=== PATIENT | female | born 1950 | race African-American/Black ===

== ENCOUNTER 2017-08-19 20:14 | Inpatient (IN) | payer OTHER ==
[~2017-08-19] VITALS: Ht 160 cm; Wt 94.4 kg
[2017-08-19 21:36] LABS: Basophils # (auto) 0.1 uL; Basophils % (auto) 0.7 % (0.0-2.0); Eosinophils # (auto) 0.4 uL; Eosinophils % (auto) 4.3 % (0.0-7.0); Hematocrit 41.6 % (36.0-46.0); Hemoglobin 13.7 g/dL (12.2-16.2); Lymphocytes # (auto) 1.4 uL; Lymphocytes % (auto) 16.1 % (10.0-50.0); Mean Corpuscular Hemoglobin 27.2 pg (28.0-32.0); Mean Corpuscular Hgb Conc. 32.9 g/dL (32.0-36.0); Mean Corpuscular Volume 82.8 fL (80.0-100.0); Mean Platelet Volume 7.6 fL (6.9-10.8); Monocytes # (auto) 0.7 uL; Monocytes % (auto) 7.7 % (0.0-12.0); Neutrophils % (auto) 71.2 % (37.0-80.0); Nucleated Red Blood Cells % 0.1 %; Platelet Count (auto) 322 10^3/uL (140-450); Red Cell Distribution Width 14.6 % (11.8-14.3); White Blood Cell 8.5 10^3/uL (4.4-10.8)
[2017-08-19 21:41] LABS: B-Type Natriuretic Peptide 151.25 pg/mL (0-100)
[2017-08-19 21:56] LABS: Temperature: 23.5 C (20.0-25.0)
[2017-08-20 00:04] LABS: INR 0.94 (0.9-1.15); Partial Thromboplastin Time 24.2 sec (22.64-33.71); Prothrombin Time 10.2 sec (9.37-12.3)
[2017-08-20 00:11] LABS: Albumin 3.6 g/dL (3.4-5.0); BUN/Creatinine Ratio 9.4; Bilirubin, Total 0.3 mg/dL (0.2-1.0); Calcium 8.9 mg/dL (8.5-10.1); Magnesium 2.1 mg/dL (1.6-2.6); Potassium 3.7 mmol/L (3.5-5.1); Total Protein 7.5 g/dL (6.4-8.2)
[2017-08-20] MEDS ORDERED: IOHEXOL 350 MG/ML 100ML IJ ONE (03:14)
[2017-08-20] MEDS ORDERED: HYDROcodone-ACET 5/325MG TAB PO PRN (03:15)
[2017-08-20] MEDS ORDERED: MORPHINE SULF INJ 2 MG/ML SYRINGE 1ML IV PRN (03:15)
[2017-08-20] MEDS ORDERED: ACETAMINOPHEN 325 MG TAB PO PRN (03:15)
[2017-08-20] MEDS ORDERED: TEMAZEPAM 15 MG CAP PO PRN (03:15)
[2017-08-20] MEDS ORDERED: NITROGLYCERIN 0.4 MG SL TAB SL PRN (03:15)
[2017-08-20] MEDS ORDERED: ONDANSETRON HCL 4 MG/2 ML VIAL IV PRN (03:15)
[2017-08-20] MEDS ORDERED: ALBUTEROL SULF 2.5 MG/0.5ML(0.5%) NEB SOLN NEB PRN (03:15)
[2017-08-20] MEDS ORDERED: DEXTROSE (50%) 50ML SYRG IV PRN (03:15)
[2017-08-20] MEDS ORDERED: ENOXAPARIN SOD 40 MG/0.4 ML SYRINGE SC ONE (03:15)
[2017-08-20] MEDS ORDERED: cloNIDine HCL 0.1 MG TAB PO ONE (04:45)
[2017-08-20 05:18] VITALS: BP 187/90
[2017-08-20] MEDS: cloNIDine HCL 0.1 MG TAB PO SCH ×2 (05:51→15:25)
[2017-08-20] MEDS: ACCU-CHEK COMFORT CURVE STRIP VI SCH ×2 (05:51→12:09)
[2017-08-20 06:00] VITALS: BP 187/90
[2017-08-20] MEDS: InsuLIN REG 1unit/0.01ml Soln (100units/ml) SC SCH ×2 (06:00→12:09)
[2017-08-20 07:38] VITALS: BP 154/65
[2017-08-20] MEDS ORDERED: amLODIPine BESYLATE 5 MG TAB PO SCH (10:00)
[2017-08-20] MEDS ORDERED: FUROSEMIDE 20 MG TAB PO SCH (10:00)
[2017-08-20] MEDS ORDERED: METOPROLOL TARTRATE 50 MG TAB PO SCH (10:00)
[2017-08-20] MEDS ORDERED: FAMOTIDINE 20 MG TAB PO SCH (10:00)
[2017-08-20 10:09] LABS: Urine RBC None Seen /hpf (0 - 4)
[2017-08-20 10:29] LABS: Urine Bilirubin Negative (Negative); Urine Blood Negative /uL (Negative); Urine Color Yellow (Yellow); Urine Glucose Normal (Normal); Urine Ketone Negative (Negative); Urine Nitrite Negative (Negative); Urine Squamous Epithelial Cell FEW /hpf (<5); Urine Urobilinogen Normal (Negative); Urine pH 6.5 (5.0-8.0)
[2017-08-20 12:05] VITALS: BP 158/105
[2017-08-20 14:48] VITALS: BP 148/68
[2017-08-20 15:06] VITALS: BP 148/68
[2017-08-20] MEDS ORDERED: ATORVASTATIN 20 MG TAB PO SCH (22:00)
[2017-08-21] MEDS ORDERED: ENOXAPARIN SOD 40 MG/0.4 ML SYRINGE SC SCH (10:00)
== END 2017-08-20 15:47 | disposition home or self-care (01) | DRG 189 ==
LOC: ER 20:14 → EDBD 20:14 → TELE 20:15 → TELE-EAST 08-20 04:36
PROVIDERS: ADMIT Internal Medicine; ATTEND Internal Medicine Geriatric Medicine
DX: J96.20 Acute and chronic respiratory failure, unspecified whether with hypoxia or hypercapnia (principal); I48.91 Unspecified atrial fibrillation; I50.9 Heart failure, unspecified; I11.0 Hypertensive heart disease with heart failure; E11.9 Type 2 diabetes mellitus without complications; I25.10 Atherosclerotic heart disease of native coronary artery without angina pectoris; J44.9 Chronic obstructive pulmonary disease, unspecified; R79.1 Abnormal coagulation profile; Z90.12 Acquired absence of left breast and nipple; Z82.5 Family history of asthma and other chronic lower respiratory diseases; Z83.3 Family history of diabetes mellitus; Z82.49 Family history of ischemic heart disease and other diseases of the circulatory system; Z82.0 Family history of epilepsy and other diseases of the nervous system; Z88.8 Allergy status to other drugs, medicaments and biological substances
CPT/HCPCS: 36415; 70450; 71010; 71275; 80053; 81001; 82962; 83735; 83880; 84443; 84484; 85025; 85379; 85610; 85730; 93005; 93306; 93970; 94761; 96372; J1815

== ENCOUNTER 2018-07-22 11:58 | Emergency (ER) | payer OTHER ==
[~2018-07-22] VITALS: Ht 157.5 cm; Wt 98.9 kg
[2018-07-22] MEDS ORDERED: cloNIDine HCL 0.1 MG TAB PO ONE (15:30)
[2018-07-22 16:15] VITALS: BP 174/86
== END 2018-07-22 16:20 | disposition home or self-care (01) ==
LOC: EDBD 11:58 → ER 11:58
DX: M19.012 Primary osteoarthritis, left shoulder (principal); M25.512 Pain in left shoulder; I11.0 Hypertensive heart disease with heart failure; I50.9 Heart failure, unspecified; J45.909 Unspecified asthma, uncomplicated; E11.9 Type 2 diabetes mellitus without complications; Z88.8 Allergy status to other drugs, medicaments and biological substances
CPT/HCPCS: 73030; 93005

== ENCOUNTER 2019-02-24 06:29 | Inpatient (IN) | payer OTHER ==
[~2019-02-24] VITALS: Ht 157.5 cm; Wt 98.1 kg
[2019-02-24] MEDS ORDERED: METOPROLOL TARTRATE 1MG/1ML-5ML VIAL IV ONE ×2 (07:18→07:30)
[2019-02-24] MEDS ORDERED: DILTIAZEM HCL 25 MG/5 ML VIAL IV ONE ×2 (07:20→07:30)
[2019-02-24 07:45] LABS: Basophils # (auto) 0 uL; Basophils % (auto) 0.7 % (0.0-2.0); Eosinophils # (auto) 0.4 uL; Eosinophils % (auto) 5.5 % (0.0-7.0); Hemoglobin 16.3 g/dL (12.2-16.2); Lymphocytes # (auto) 1.1 uL; Mean Corpuscular Hemoglobin 27.4 pg (28.0-32.0); Mean Corpuscular Hgb Conc. 32.6 g/dL (32.0-36.0); Monocytes # (auto) 0.6 uL; Monocytes % (auto) 9.9 % (0.0-12.0); Neutrophils # (auto) 4.3 uL; Neutrophils % (auto) 66.9 % (37.0-80.0); Nucleated Red Blood Cells % 0.1 %; Platelet Count (auto) 278 10^3/uL (140-450); Red Blood Cells 5.95 10^6/uL (4.0-5.20); Red Cell Distribution Width 15.2 % (11.8-14.3); White Blood Cell 6.5 10^3/uL (4.4-10.8)
[2019-02-24 07:56] LABS: Potassium 3.3 mmol/L (3.5-5.1)
[2019-02-24 07:59] LABS: Albumin 3.6 g/dL (3.4-5.0); Calcium 9.3 mg/dL (8.5-10.1)
[2019-02-24 08:02] LABS: BUN/Creatinine Ratio 10.6
[2019-02-24 08:05] LABS: Bilirubin, Total 0.8 mg/dL (0.2-1.0); Total Protein 7.3 g/dL (6.4-8.2)
[2019-02-24] MEDS ORDERED: POTASSIUM CHL 10% (20 MEQ/15ML) 15ml ORAL SOLN PO ONE (10:15)
[2019-02-24] MEDS ORDERED: NITROGLYCERIN 0.4 MG SL TAB SL PRN (10:30)
[2019-02-24] MEDS ORDERED: TEMAZEPAM 15 MG CAP PO PRN (10:30)
[2019-02-24] MEDS ORDERED: DEXTROSE (50%) 50ML SYRG IV PRN (10:30)
[2019-02-24] MEDS ORDERED: ACETAMINOPHEN 500 MG TAB PO PRN (10:30)
[2019-02-24] MEDS ORDERED: MORPHINE SULF INJ 2 MG/ML SYRINGE 1ML IV PRN (10:30)
[2019-02-24] MEDS ORDERED: PROMETHAZINE HCL 25 MG/ML 1ML IV PRN (10:30)
[2019-02-24] MEDS: SODIUM CHLORIDE 0.9% 1,000 ML IV SCH ×2 (10:36→23:36)
[2019-02-24] MEDS ORDERED: ENOXAPARIN SOD 100 MG/1 ML SYRINGE SC ONE (10:45)
[2019-02-24] MEDS ORDERED: ASPirin 81 mg TAB PO ONE (10:45)
[2019-02-24] MEDS ORDERED: METOPROLOL TARTRATE 50 MG TAB PO ONE (10:45)
[2019-02-24] MEDS: InsuLIN REG 1unit/0.01ml Soln (100units/ml) SC SCH ×3 (11:30→21:37)
[2019-02-24] MEDS: ACCU-CHEK COMFORT CURVE STRIP VI SCH ×3 (11:30→21:36)
--- NOTE | 2019-02-24 20:30 | NUR ---
Telemetry admit from ER EMILY TRAVIS admitted to Telemetry unit after SBAR received. Patient oriented to MICHAEL ALMARAZ RN primary RN, unit, room, bed, and unit policies regarding patient care and visiting hours. Patient now on continuous telemetry monitoring, tele box # [id number] and telemetry reading on arrival to unit is SR. Patient placed on bedside oxygen, weighed by bedscale and encouraged to call if they need something. All questions and concerns addressed, patient verbalized understanding. Note:
[2019-02-24] MEDS: ATORVASTATIN 20 MG TAB PO SCH (21:41)
[2019-02-24] MEDS: METOPROLOL TARTRATE 50 MG TAB PO SCH (21:42)
[2019-02-24] MEDS: ENOXAPARIN SOD 100 MG/1 ML SYRINGE SC SCH (21:42)
[2019-02-24 22:00] VITALS: BP 174/91
[2019-02-24] MEDS ORDERED: METOPROLOL TARTRATE 25 MG TAB PO SCH (22:00)
[2019-02-24 23:16] LABS: Urine Bacteria FEW /hpf (None Seen); Urine Blood Negative /uL (Negative); Urine Specific Gravity 1.008 (1.001-1.035); Urine WBC <1 /hpf (0 - 5)
[2019-02-25 05:00] VITALS: BP 158/87
[2019-02-25] MEDS: InsuLIN REG 1unit/0.01ml Soln (100units/ml) SC SCH ×4 (05:37→23:01)
[2019-02-25] MEDS: ACCU-CHEK COMFORT CURVE STRIP VI SCH ×4 (05:37→23:00)
--- NOTE | 2019-02-25 08:11 | NUR ---
ELEVATED BP BP 184/113MMHG, RE CHECKED 191/120MMHG, PAGED HOSPITALIST, PT HAS NO PRN MEDICATION FOR BLOOD PRESSURE. WAITING FOR CALL BACK.
[2019-02-25 08:17] VITALS: BP 184/113
[2019-02-25] MEDS: amLODIPine BESYLATE 5 MG TAB PO SCH (08:17)
[2019-02-25] MEDS: METOPROLOL TARTRATE 50 MG TAB PO SCH ×2 (08:18→22:00)
--- NOTE | 2019-02-25 08:19 | NUR ---
BLOOD PRESSURE MEDICATION SCHEDULED AT 1000 GIVEN EARLIER THAN SCHEDULE DUE TO HIGH BLOOD PRESSURE, PT HAS NO PRN MEDICATION.
[2019-02-25] MEDS ORDERED: CLON0.1T PO (08:23)
--- NOTE | 2019-02-25 08:31 | NUR ---
PT REQUESTED TO STOP THE IV FLUIDS, PT STATED SHE HAS CHF, IV FLUID HELD AND WILL NOTIFY MD.
[2019-02-25] MEDS: ENOXAPARIN SOD 100 MG/1 ML SYRINGE SC SCH ×2 (09:34→22:53)
[2019-02-25] MEDS: PANTOPRAZOLE 40 MG TAB PO SCH (09:36)
[2019-02-25] MEDS: ASPirin 81 mg TAB PO SCH (09:36)
--- NOTE | 2019-02-25 10:10 | NUR ---
ELEVATED BP BP 208/115MMHG AFTER NORVASC AND METOPROLOL, PAGED DR. WAGONER, WAITING FOR CALL BACK. Addendum: 02/25/19 at 1021 by Rossy Lynn RN [id number] - DR. WAGONER CALLED AND ORDERED CLONIDINE .1MG Q6HRS PRN FOR SYSTOLIC BP >160MMHG, WILL CONTINUE TO MONITOR.
[2019-02-25] MEDS ORDERED: cloNIDine HCL 0.1 MG TAB PO PRN (10:30)
--- NOTE | 2019-02-25 11:13 | NUR ---
DR. IQBAL MADE AWARE OF PT'S BP, HE ORDERED TO CHANGE CLONIDINE TO .2MG PO Q4HRS PRN FOR BP>160.
--- NOTE | 2019-02-25 11:54 | NUR ---
ELEVATED BP BP 190/112MMHG, WILL GIVE BP MEDICATION ORDERED.
[2019-02-25] MEDS: cloNIDine HCL 0.1 MG TAB PO PRN (11:56)
[2019-02-25 12:21] VITALS: BP 190/112
[2019-02-25] MEDS ORDERED: LOSARTAN POTASSIUM 50 MG TAB PO ONE (13:30)
[2019-02-25 16:35] VITALS: BP 137/75
--- NOTE | 2019-02-25 19:20 | NUR ---
Opening Shift Note Assumed care of patient, awake and alert and talking actively with room mate. The two ladies watch out for and listen for needs of one another attempting to get help for each other prn. No S/S of distress/SOB or pain. Instructed on POC and to call for assist PRN. Pt active in setting up POC for the pm with this RN. RN will continue to monitor for changes PRN. Bed in low position and HOB in semi-Coles's position.
[2019-02-25 21:57] VITALS: BP 165/85
[2019-02-25] MEDS: ATORVASTATIN 20 MG TAB PO SCH (22:52)
--- NOTE | 2019-02-25 23:27 | NUR ---
EKG done per c/o mild chest pain and high blood pressure. SR with 1st degree block and knotched P waves viewed. Tylenol given for the pain. Addendum: 02/26/19 at 0748 by LATHA KIM RN Time of EKG was approx 0452 and the Tylenol dose also.
[2019-02-26] MEDS: cloNIDine HCL 0.1 MG TAB PO PRN ×2 (04:40→21:21)
[2019-02-26 04:58] VITALS: BP 178/103
[2019-02-26] MEDS: ACCU-CHEK COMFORT CURVE STRIP VI SCH ×4 (06:52→21:16)
[2019-02-26] MEDS: InsuLIN REG 1unit/0.01ml Soln (100units/ml) SC SCH ×4 (06:52→21:21)
--- NOTE | 2019-02-26 07:35 | NUR ---
Opening Shift Note Assumed care of patient, awake and alert, lying on bed . No S/S of distress/SOB or pain. Call light within reach, 2 side rails up and bed in lowest position. Instructed on POC and to call for assist PRN, will continue to monitor for changes Q1hr and PRN.
[2019-02-26 07:53] VITALS: BP 148/77
[2019-02-26] MEDS: ENOXAPARIN SOD 100 MG/1 ML SYRINGE SC SCH ×2 (09:08→21:15)
[2019-02-26] MEDS: PANTOPRAZOLE 40 MG TAB PO SCH (09:08)
[2019-02-26] MEDS: METOPROLOL TARTRATE 50 MG TAB PO SCH ×2 (09:09→21:15)
[2019-02-26] MEDS: ASPirin 81 mg TAB PO SCH (09:09)
[2019-02-26] MEDS: amLODIPine BESYLATE 5 MG TAB PO SCH (09:09)
[2019-02-26] MEDS: LOSARTAN POTASSIUM 50 MG TAB PO SCH (09:10)
[2019-02-26 12:26] VITALS: BP 151/96
[2019-02-26 16:35] VITALS: BP 155/87
[2019-02-26] MEDS ORDERED: CHOL100039 PO (16:50)
[2019-02-26] MEDS ORDERED: POTATAB17 PO (16:50)
[2019-02-26] MEDS ORDERED: ALBUAER3 IN (16:50)
[2019-02-26] MEDS ORDERED: EXEM25TA4 PO (16:50)
[2019-02-26] MEDS ORDERED: METF-370 PO (16:50)
[2019-02-26] MEDS ORDERED: ATOR1TAB PO (16:50)
[2019-02-26] MEDS ORDERED: AMLO5TAB13 PO (16:50)
[2019-02-26] MEDS ORDERED: LOSA-46 PO (16:50)
[2019-02-26] MEDS ORDERED: METO-158 PO (16:50)
[2019-02-26] MEDS ORDERED: GLIM4TAB42 PO (16:50)
--- NOTE | 2019-02-26 18:30 | NUR ---
Pt instructed not to drink coffee and no food and water after midnight for cardiolite stress test tomorrow. Pt verbalized understanding.
--- NOTE | 2019-02-26 20:00 | NUR ---
Opening Shift Note Assumed care of patient, awake and alert. No S/S of distress/SOB or pain. Instructed on POC and to call for assist PRN, will continue to monitor for changes Q1hr and PRN.
[2019-02-26] MEDS: ATORVASTATIN 20 MG TAB PO SCH (21:14)
[2019-02-26 21:56] VITALS: BP 167/69
[2019-02-27 04:25] VITALS: BP 162/77
[2019-02-27] MEDS: cloNIDine HCL 0.1 MG TAB PO PRN ×2 (05:50→16:58)
[2019-02-27] MEDS: ACCU-CHEK COMFORT CURVE STRIP VI SCH ×4 (06:00→22:13)
[2019-02-27] MEDS: InsuLIN REG 1unit/0.01ml Soln (100units/ml) SC SCH ×4 (06:01→22:00)
--- NOTE | 2019-02-27 07:24 | NUR ---
Report given to Elena Chavez to assume care, NPO maintained, patient is resting no distress.
--- NOTE | 2019-02-27 08:10 | NUR ---
PT RESTING IN BED, NO DISTRESS NOTED. PT INSTRUCTED SHE IS NPO UNTIL STRESS TEST. PT ALREADY AWARE AND VERBALIZED UNDERSTANDING. PT HAS 2 IVS, BOTH PATIENT AND FLUSHED WITH 0.9 NS. PT ENCOURAGED TO USE CALL LIGHT PRN, BED RAILS UP X 2, BED IN LOWEST LOCKED POSITION. WILL CONTINUE TO MONITOR.
[2019-02-27] MEDS ORDERED: ADENOSINE 81 MG in GIVE UN-DILUTED 0 ML IV STA (08:30)
--- NOTE | 2019-02-27 08:32 | NUR ---
PT REPORTS SHE HAS CONCERNS ABOUT STRESS TEST. PT REPORTS SHE HAD CHEST PAIN AFTER HER LAST STRESS TEST. PT EDUCATED THAT SHE SHOULD RETURN TO EMERGENCY ROOM IF SHE HAS CHEST PAIN AFTER PROCEDURE IF SHE CHOOSES TO DO THE STRESS TEST. STRESS CATHEAD WORKER IN ROOM, PT EDUCATED SHE CAN SPEAK WITH MD DOWN STAIRS BEFORE TEST AND HE WILL BE ABLE TO ANSWER ALL PT QUESTIONS, TECH CONFIRMED. PT REPORTS SHE FEELS COMFORTABLE WITH FIRST PART OF STRESS TEST AND WILL SPEAK WITH MD BEFORE SECOND PART. WILL CONTINUE TO MONITOR.
[2019-02-27 09:00] VITALS: BP 152/93
[2019-02-27] MEDS: PANTOPRAZOLE 40 MG TAB PO SCH (09:29)
[2019-02-27] MEDS: METOPROLOL TARTRATE 50 MG TAB PO SCH ×2 (09:29→22:13)
[2019-02-27] MEDS: ASPirin 81 mg TAB PO SCH (09:30)
[2019-02-27] MEDS: amLODIPine BESYLATE 5 MG TAB PO SCH (09:30)
[2019-02-27] MEDS: LOSARTAN POTASSIUM 50 MG TAB PO SCH (09:31)
[2019-02-27] MEDS: ENOXAPARIN SOD 100 MG/1 ML SYRINGE SC SCH ×2 (09:32→22:13)
[2019-02-27] MEDS ORDERED: LOSARTAN POTASSIUM 50 MG TAB PO ONE (10:45)
--- NOTE | 2019-02-27 12:01 | NUR ---
PATIENT RETURNED TO FLOOR VIA WHEEL CHAIR, NO DISTRESS NOTED. PT COMPLETED FIRST PART OF STRESS TEST, TECH REPORTS SHE WILL GO FOR SECOND PART AROUND 1300, WILL CONTINUE TO MONITOR.
--- NOTE | 2019-02-27 12:26 | NUR ---
NUTRITION ASSESSMENT NOTES Please refer to link notes of nutrition screen form filed under the intervention section of the plan of care for further details. Est. Needs: 1450 kcal to 1900 kcal (15-20 kcal/kgBW), 50 gms to 60 gms pro (1.0-1.2 gms/kgIBW: 50 kg). Will continue to monitor pertinent labs and reassess nutrient need prn Thank you. Addendum: 02/27/19 at [address] Amended: Links added.
[2019-02-27 13:00] VITALS: BP 164/99
--- NOTE | 2019-02-27 14:09 | NUR ---
PHLEBOTOMIST MEDICAL LAB ASSISTANT REPORTS PT BP 164/99. ORDERED ANOTHER 50 MG COZAAR. COZAAR GIVEN, WILL REASSESS BP Q 1 HOUR.
[2019-02-27 14:30] VITALS: BP 175/100
[2019-02-27 17:00] VITALS: BP 166/77
[2019-02-27 21:56] VITALS: BP 149/87
--- NOTE | 2019-02-27 22:00 | NUR ---
IV removal IV DC'd Right Hand with clean sterile technique, catheter fully intact. Pressure dressing applied to site. Patient tolerated well. NOTE: Patient reporting tenderness at site.
[2019-02-27] MEDS: ATORVASTATIN 20 MG TAB PO SCH (22:12)
[2019-02-28 05:00] VITALS: BP 168/80
[2019-02-28] MEDS: ACCU-CHEK COMFORT CURVE STRIP VI SCH ×3 (06:44→17:11)
[2019-02-28] MEDS: cloNIDine HCL 0.1 MG TAB PO PRN (06:44)
[2019-02-28] MEDS: InsuLIN REG 1unit/0.01ml Soln (100units/ml) SC SCH ×3 (06:48→17:00)
[2019-02-28] MEDS: ENOXAPARIN SOD 100 MG/1 ML SYRINGE SC SCH (08:47)
[2019-02-28] MEDS: ASPirin 81 mg TAB PO SCH (08:48)
[2019-02-28] MEDS: amLODIPine BESYLATE 5 MG TAB PO SCH (08:50)
[2019-02-28] MEDS: METOPROLOL TARTRATE 50 MG TAB PO SCH (08:50)
[2019-02-28 08:56] VITALS: BP 134/70
[2019-02-28] MEDS: PANTOPRAZOLE 40 MG TAB PO SCH (09:00)
[2019-02-28] MEDS ORDERED: LOSARTAN POTASSIUM 50 MG TAB PO SCH (10:00)
[2019-02-28 13:00] VITALS: BP 114/76
[2019-02-28 14:48] VITALS: BP 114/76
[2019-02-28 17:00] VITALS: BP 165/83
--- NOTE | 2019-02-28 18:53 | NUR ---
DISCHARGE INSTRUCTIONS GIVEN TO PT, VERBALIZED UNDERSTANDING. IV AND TELE BOX REMOVED. [facility] CALLED. PT TRANSPORTED TO ER ENTRANCE VIA WHEELCHAIR.
== END 2019-02-28 18:45 | disposition home or self-care (01) | DRG 309 ==
LOC: ER 06:29 → TELE 10:16 → TELE-WESTW 19:43
PROVIDERS: ADMIT Internal Medicine Geriatric Medicine; ATTEND Internal Medicine Geriatric Medicine
DX: I48.0 Paroxysmal atrial fibrillation (principal); I50.30 Unspecified diastolic (congestive) heart failure; J45.909 Unspecified asthma, uncomplicated; E87.6 Hypokalemia; I11.0 Hypertensive heart disease with heart failure; E66.01 Morbid (severe) obesity due to excess calories; E11.9 Type 2 diabetes mellitus without complications; I25.10 Atherosclerotic heart disease of native coronary artery without angina pectoris; I70.0 Atherosclerosis of aorta; Z68.39 Body mass index [BMI] 39.0-39.9, adult; Z82.5 Family history of asthma and other chronic lower respiratory diseases; Z85.3 Personal history of malignant neoplasm of breast; Z85.038 Personal history of other malignant neoplasm of large intestine; Z87.891 Personal history of nicotine dependence; Z90.12 Acquired absence of left breast and nipple; Z92.21 Personal history of antineoplastic chemotherapy; Z95.5 Presence of coronary angioplasty implant and graft; Z88.8 Allergy status to other drugs, medicaments and biological substances
CPT/HCPCS: 36415; 71045; 78452; 80053; 81001; 82962; 83036; 83880; 84443; 84484; 85025; 85379; 87040; 93005; 93017; 93306; 96361; 96372; 96374; G0378; J0153; J1815

== ENCOUNTER 2019-07-27 12:49 | Emergency (ER) | payer OTHER ==
[~2019-07-27] VITALS: Ht 157.5 cm; Wt 96.6 kg
[~2019-07-27 12:49] MED LIST: ALBUAER3 IN; AMLO5TAB15 PO; ATOR1TAB PO; CHOL100039 PO; CLON0.1T PO; EXEM25TA4 PO; GLIM4TAB42 PO; LOSA-69 PO; METF-370 PO; METO-158 PO; POTATAB17 PO
[2019-07-27] MEDS ORDERED: cloNIDine HCL 0.1 MG TAB ONE (13:18)
[2019-07-27 13:29] LABS: Basophils # (auto) 0 uL; Basophils % (auto) 0.7 % (0.0-2.0); Eosinophils # (auto) 0.3 uL; Eosinophils % (auto) 4.8 % (0.0-7.0); Hematocrit 44.5 % (36.0-46.0); Hemoglobin 14.6 g/dL (12.2-16.2); Lymphocytes # (auto) 1.2 uL; Lymphocytes % (auto) 19.2 % (10.0-50.0); Mean Corpuscular Hemoglobin 27.7 pg (28.0-32.0); Mean Corpuscular Hgb Conc. 32.8 g/dL (32.0-36.0); Mean Corpuscular Volume 84.5 fL (80.0-100.0); Monocytes # (auto) 0.6 uL; Monocytes % (auto) 8.8 % (0.0-12.0); Neutrophils # (auto) 4.2 uL; Neutrophils % (auto) 66.5 % (37.0-80.0); Nucleated Red Blood Cells % 0.1 %; Platelet Count (auto) 274 10^3/uL (140-450); Red Blood Cells 5.27 10^6/uL (4.0-5.20); Red Cell Distribution Width 15.3 % (11.8-14.3); White Blood Cell 6.3 10^3/uL (4.4-10.8)
[2019-07-27] MEDS ORDERED: cloNIDine HCL 0.1 MG TAB PO ONE (13:30)
[2019-07-27 13:57] LABS: Albumin 3.6 g/dL (3.4-5.0); Anion Gap 5 (5-15); Blood Urea Nitrogen 15 mg/dL (7-18); Calcium 9.3 mg/dL (8.5-10.1); Carbon Dioxide 28 mmol/L (21-32); Chloride 108 mmol/L (98-107); Glucose 99 mg/dL (74-106); Potassium 3.9 mmol/L (3.5-5.1); Sodium 141 mmol/L (136-145)
[2019-07-27 14:03] LABS: Alanine Aminotransferase 12 U/L (13-56); Alkaline Phosphatase 114 U/L (45-117); Aspartate Aminotransferase 10 U/L (15-37); Bilirubin, Total 0.5 mg/dL (0.2-1.0); GFR African American 49 mL/min; GFR Non-African American 41 mL/min; Total Protein 6.9 g/dL (6.4-8.2)
[2019-07-27] MEDS ORDERED: ASPirin 81 mg TAB PO ONE (14:30)
[2019-07-27] MEDS ORDERED: amLODIPine BESYLATE 5 MG TAB PO ONE (15:30)
[2019-07-27 19:00] VITALS: BP 156/86
== END 2019-07-27 19:10 | disposition home or self-care (01) ==
LOC: ER 12:53
DX: I11.0 Hypertensive heart disease with heart failure (principal); I50.9 Heart failure, unspecified; I48.91 Unspecified atrial fibrillation; I25.10 Atherosclerotic heart disease of native coronary artery without angina pectoris; J44.9 Chronic obstructive pulmonary disease, unspecified; E11.9 Type 2 diabetes mellitus without complications; Z98.61 Coronary angioplasty status; Z88.1 Allergy status to other antibiotic agents; Z88.8 Allergy status to other drugs, medicaments and biological substances; Z79.84 Long term (current) use of oral hypoglycemic drugs; Z79.899 Other long term (current) drug therapy
CPT/HCPCS: 36415; 71046; 80053; 84443; 84484; 85025; 93005

== ENCOUNTER 2020-05-03 19:09 | Emergency (ER) | payer OTHER ==
[~2020-05-03] VITALS: Ht 162.6 cm; Wt 98.4 kg
[2020-05-03] MEDS ORDERED: MORPHINE SULF INJ 2 MG/ML SYRINGE 1ML IV ONE (19:30)
[2020-05-03] MEDS ORDERED: ONDANSETRON HCL 4 MG/2 ML VIAL IV ONE (19:30)
[2020-05-03 20:02] LABS: Basophils # (auto) 0 10 ^3/uL (0-0.2); Basophils % (auto) 0.5 % (0.0-2.0); Eosinophils # (auto) 0.3 10 ^3/uL (0-0.8); Eosinophils % (auto) 4.8 % (0.0-7.0); Hematocrit 39.8 % (36.0-46.0); Lymphocytes # (auto) 1.3 10 ^3/uL (0.4-5.4); Lymphocytes % (auto) 17.9 % (10.0-50.0); Mean Corpuscular Hemoglobin 27.6 pg (28.0-32.0); Mean Corpuscular Hgb Conc. 32.7 g/dL (32.0-36.0); Mean Corpuscular Volume 84.5 fL (80.0-100.0); Monocytes # (auto) 0.6 10 ^3/uL (0-1.3); Monocytes % (auto) 7.8 % (0.0-12.0); Neutrophils # (auto) 4.9 10 ^3/uL (1.6-8.6); Nucleated Red Blood Cells % 0.1 %; Platelet Count (auto) 265 10^3/uL (140-450); Red Blood Cells 4.71 10^6/uL (4.0-5.20); White Blood Cell 7.1 10^3/uL (4.4-10.8)
[2020-05-03 20:22] LABS: Albumin 3.5 g/dL (3.4-5.0); Anion Gap 5 (5-15); BUN/Creatinine Ratio 11.2; Blood Urea Nitrogen 26 mg/dL (7-18); Calcium 8.3 mg/dL (8.5-10.1); Carbon Dioxide 27 mmol/L (21-32); Chloride 109 mmol/L (98-107); GFR African American 27 mL/min; GFR Non-African American 22 mL/min; Glucose 114 mg/dL (74-106); Magnesium 1.9 mg/dL (1.6-2.6); Sodium 141 mmol/L (136-145)
[2020-05-03 20:27] LABS: Alanine Aminotransferase 12 U/L (13-56); Alkaline Phosphatase 103 U/L (45-117); Aspartate Aminotransferase 13 U/L (15-37); Bilirubin, Total 0.3 mg/dL (0.2-1.0); Total Protein 6.8 g/dL (6.4-8.2)
[2020-05-03] MEDS ORDERED: SOD CHL 0.45% 1,000 ML IV ONE (21:30)
[2020-05-03 23:00] VITALS: BP 131/65
== END 2020-05-04 00:18 | disposition home or self-care (01) ==
LOC: EDBD 19:09 → ER 19:09 → EDUNIT# 19:09 → ER 05-04 00:18
DX: I24.9 Acute ischemic heart disease, unspecified (principal); E11.22 Type 2 diabetes mellitus with diabetic chronic kidney disease; I13.0 Hypertensive heart and chronic kidney disease with heart failure and stage 1 through stage 4 chronic kidney disease, or unspecified chronic kidney disease; N18.9 Chronic kidney disease, unspecified; I50.9 Heart failure, unspecified; J44.9 Chronic obstructive pulmonary disease, unspecified; E78.5 Hyperlipidemia, unspecified; Z98.61 Coronary angioplasty status; Z88.6 Allergy status to analgesic agent
CPT/HCPCS: 36415; 71045; 80053; 83735; 83880; 84484; 85025; 96374; 96375; 99284; J2270; J2405; J7030; 93005

== ENCOUNTER 2021-11-07 09:12 | Emergency (ER) | payer OTHER ==
[~2021-11-07] VITALS: Ht 157.5 cm; Wt 98.9 kg
[~2021-11-07 09:12] MED LIST changes: +AMLO-489 PO; -AMLO5TAB15 PO; +ATOR-47 PO; -ATOR1TAB PO
[2021-11-07] MEDS ORDERED: cloNIDine HCL 0.1 MG TAB PO ONE (09:30)
[2021-11-07] MEDS ORDERED: ALBUTEROL SULF 2.5 MG/0.5ML(0.5%) NEB SOLN NEB ONE (10:30)
[2021-11-07] MEDS ORDERED: IPRATROPIUM BROM 0.5 MG/2.5ML INH SOL NEB ONE (10:30)
[2021-11-07 10:31] VITALS: BP 128/85
[2021-11-07] MEDS ORDERED: ALBU108A5 IN (10:58)
[2021-11-07] MEDS ORDERED: LEVO500T31 PO (10:58)
== END 2021-11-07 11:14 | disposition home or self-care (01) ==
LOC: ER 09:12
DX: J44.9 Chronic obstructive pulmonary disease, unspecified (principal); I13.0 Hypertensive heart and chronic kidney disease with heart failure and stage 1 through stage 4 chronic kidney disease, or unspecified chronic kidney disease; E11.22 Type 2 diabetes mellitus with diabetic chronic kidney disease; N18.9 Chronic kidney disease, unspecified; I50.9 Heart failure, unspecified; I48.91 Unspecified atrial fibrillation; I25.10 Atherosclerotic heart disease of native coronary artery without angina pectoris; I25.2 Old myocardial infarction; E78.5 Hyperlipidemia, unspecified
CPT/HCPCS: 71046; 94640; 99283; J7644

== ENCOUNTER 2022-05-22 12:45 | Emergency (ER) | payer OTHER ==
[~2022-05-22] VITALS: Ht 157.5 cm; Wt 100.0 kg
[~2022-05-22 12:45] MED LIST changes: +ALBU108A5 IN; +LEVO500T31 PO
[2022-05-22 12:54] VITALS: BP 129/80
[2022-05-22 13:32] LABS: Eosinophils # (auto) 0.1 10 ^3/uL (0-0.8); Eosinophils % (auto) 1.4 % (0.0-7.0); Monocytes # (auto) 0.5 10 ^3/uL (0-1.3); Monocytes % (auto) 5.8 % (0.0-12.0)
[2022-05-22 13:34] LABS: Basophils # (auto) 0 10 ^3/uL (0-0.2); Basophils % (auto) 0.4 % (0.0-2.0); Hemoglobin 12.5 g/dL (12.2-16.2); Lymphocytes % (auto) 11.5 % (10.0-50.0); Mean Corpuscular Hemoglobin 26.4 pg (28.0-32.0); Mean Corpuscular Hgb Conc. 32.1 g/dL (32.0-36.0); Mean Corpuscular Volume 82.2 fL (80.0-100.0); Neutrophils # (auto) 7.3 10 ^3/uL (1.6-8.6); Neutrophils % (auto) 80.9 % (37.0-80.0); Nucleated Red Blood Cells % 0.1 %; Red Blood Cells 4.75 10^6/uL (4.0-5.20); Red Cell Distribution Width 15.5 % (11.8-14.3); White Blood Cell 9.1 10^3/uL (4.4-10.8)
[2022-05-22] MEDS ORDERED: IPRATROPIUM BROM 0.5 MG/2.5ML INH SOL NEB ONE ×2 (13:45→18:15)
[2022-05-22] MEDS ORDERED: DexAMETHasone SOD PHOS 10MG/1ML VIAL INJ IV ONE (13:45)
[2022-05-22] MEDS ORDERED: ASPirin 81 mg TAB PO ONE (13:45)
[2022-05-22] MEDS ORDERED: MAGNESIUM SULFATE 1GM/100ML 100 ML IV SCH (13:45)
[2022-05-22] MEDS ORDERED: ALBUTEROL SULF 2.5 MG/0.5ML(0.5%) NEB SOLN NEB ONE ×2 (13:45→18:15)
[2022-05-22 13:46] LABS: Albumin 3.1 g/dL (3.4-5.0); BUN/Creatinine Ratio 18.8; Calcium 8.4 mg/dL (8.5-10.1); Magnesium 2.3 mg/dL (1.6-2.6); Potassium 3.9 mmol/L (3.5-5.1)
[2022-05-22 13:49] LABS: Bilirubin, Total 0.6 mg/dL (0.2-1.0); Total Protein 6.3 g/dL (6.4-8.2)
[2022-05-22] MEDS ORDERED: FUROSEMIDE 40 MG/4 ML VIAL IV ONE (18:15)
[2022-05-22] MEDS ORDERED: methylPREDNISolone SOD SUCC 125 MG/2 ML VL IV ONE (18:15)
[2022-05-22] MEDS ORDERED: FURO1TAB31 PO (19:25)
[2022-05-22] MEDS ORDERED: POTA10TA51 PO (19:25)
== END 2022-05-23 04:01 | disposition home or self-care (01) ==
LOC: EDBD 12:45 → ER 12:45
DX: J44.9 Chronic obstructive pulmonary disease, unspecified (principal); R07.89 Other chest pain; K80.50 Calculus of bile duct without cholangitis or cholecystitis without obstruction; I13.0 Hypertensive heart and chronic kidney disease with heart failure and stage 1 through stage 4 chronic kidney disease, or unspecified chronic kidney disease; E11.22 Type 2 diabetes mellitus with diabetic chronic kidney disease; N18.9 Chronic kidney disease, unspecified; I50.9 Heart failure, unspecified; I48.91 Unspecified atrial fibrillation; I25.10 Atherosclerotic heart disease of native coronary artery without angina pectoris; I25.2 Old myocardial infarction; Z79.899 Other long term (current) drug therapy; Z88.8 Allergy status to other drugs, medicaments and biological substances; Z20.822 Contact with and (suspected) exposure to COVID-19
CPT/HCPCS: 36415; 71045; 76705; 80053; 83735; 83880; 84484; 85025; 87426; 93005; 94640; 99284; J7644

== ENCOUNTER 2022-09-06 12:57 | Emergency (ER) | payer OTHER ==
[~2022-09-06] VITALS: Ht 167.6 cm; Wt 104.0 kg
[~2022-09-06 12:57] MED LIST changes: +FURO1TAB31 PO; +POTA10TA51 PO
[2022-09-06 13:45] LABS: Eosinophils # (auto) 0.2 10 ^3/uL (0-0.8); Lymphocytes # (auto) 0.8 10 ^3/uL (0.4-5.4); Mean Corpuscular Hgb Conc. 32.1 g/dL (32.0-36.0); Monocytes # (auto) 0.5 10 ^3/uL (0-1.3); Neutrophils # (auto) 6.1 10 ^3/uL (1.6-8.6)
[2022-09-06 13:47] LABS: Basophils # (auto) 0 10 ^3/uL (0-0.2); Basophils % (auto) 0.5 % (0.0-2.0); Hemoglobin 12.8 g/dL (12.2-16.2); Lymphocytes % (auto) 10.5 % (10.0-50.0); Mean Corpuscular Hemoglobin 26.8 pg (28.0-32.0); Mean Corpuscular Volume 83.3 fL (80.0-100.0); Monocytes % (auto) 6.9 % (0.0-12.0); Neutrophils % (auto) 79.1 % (37.0-80.0); Red Cell Distribution Width 16.1 % (11.8-14.3); White Blood Cell 7.7 10^3/uL (4.4-10.8)
[2022-09-06 14:12] LABS: Albumin 3.3 g/dL (3.4-5.0); BUN/Creatinine Ratio 10.6
[2022-09-06 14:15] LABS: Bilirubin, Total 0.8 mg/dL (0.2-1.0)
[2022-09-06 16:27] LABS: Urine Bacteria FEW /hpf (None Seen); Urine Blood Negative /uL (Negative); Urine Mucus FEW (None Seen); Urine Specific Gravity 1.013 (1.001-1.035); Urine WBC 1 /hpf (0 - 5)
[2022-09-06] MEDS ORDERED: levoFLOXacin 500 MG TAB PO ONE (16:30)
[2022-09-06] MEDS ORDERED: FUROSEMIDE 40 MG/4 ML VIAL IV ONE (16:30)
[2022-09-06] MEDS ORDERED: LEVO500T31 PO (17:33)
[2022-09-06 18:05] VITALS: BP 125/83
== END 2022-09-06 18:34 | disposition home or self-care (01) ==
LOC: ER 12:57 → EDBD 12:57 → ER 18:34
DX: J18.9 Pneumonia, unspecified organism (principal); I48.91 Unspecified atrial fibrillation; I13.0 Hypertensive heart and chronic kidney disease with heart failure and stage 1 through stage 4 chronic kidney disease, or unspecified chronic kidney disease; E11.22 Type 2 diabetes mellitus with diabetic chronic kidney disease; N18.9 Chronic kidney disease, unspecified; I50.84 End stage heart failure; I25.10 Atherosclerotic heart disease of native coronary artery without angina pectoris; I25.2 Old myocardial infarction; E78.5 Hyperlipidemia, unspecified; J44.9 Chronic obstructive pulmonary disease, unspecified
CPT/HCPCS: 36415; 70450; 71045; 80053; 81001; 83880; 84484; 85025; 93005; 96374; 99284; J1940

== ENCOUNTER 2023-12-16 20:10 | Emergency (ER) | payer OTHER, MEDICAID ==
[~2023-12-16] VITALS: Ht 152.4 cm; Wt 120.0 kg
[~2023-12-16 20:10] MED LIST changes: -AMLO-489 PO; +AMLO1TAB22 PO; -LOSA-69 PO; +LOSA50TA46 PO
[2023-12-16 21:53] LABS: Basophils # (auto) 0 10 ^3/uL (0-0.2); Basophils % (auto) 0.4 % (0.0-2.0); Eosinophils # (auto) 0.2 10 ^3/uL (0-0.8); Eosinophils % (auto) 1.8 % (0.0-7.0); Hematocrit 40.8 % (36.0-46.0); Hemoglobin 13.2 g/dL (12.2-16.2); Lymphocytes # (auto) 0.9 10 ^3/uL (0.4-5.4); Lymphocytes % (auto) 7.2 % (10.0-50.0); Mean Corpuscular Hgb Conc. 32.4 g/dL (32.0-36.0); Mean Corpuscular Volume 80.2 fL (80.0-100.0); Monocytes # (auto) 0.7 10 ^3/uL (0-1.3); Monocytes % (auto) 6.2 % (0.0-12.0); Neutrophils % (auto) 84.4 % (37.0-80.0); Nucleated Red Blood Cells % 0.2 %; Red Blood Cells 5.09 10^6/uL (4.0-5.20); White Blood Cell 11.8 10^3/uL (4.4-10.8)
[2023-12-16 22:12] LABS: Alanine Aminotransferase 28 U/L (7-40); Albumin 3.9 g/dL (3.2-4.8); Alkaline Phosphatase 135 U/L (46-116); Anion Gap 12 (5-15); Aspartate Aminotransferase 26 U/L (13-40); Bilirubin, Total 0.6 mg/dL (0.2-1.0); Blood Urea Nitrogen 61 mg/dL (9-23); Calcium 8.4 mg/dL (8.7-10.4); Carbon Dioxide 24 mmol/L (20-30); Chloride 101 mmol/L (98-107); Glucose 215 mg/dL (74-106); Lipase 61 U/L (12-53); Potassium 3.2 mmol/L (3.5-5.1); Sodium 137 mmol/L (136-145); Total Protein 6.6 g/dL (5.7-8.2)
[2023-12-17] MEDS ORDERED: DICY10CA PO (00:53)
[2023-12-17] MEDS ORDERED: ZOFR4T PO (00:53)
[2023-12-17] MEDS ORDERED: AZIT-81 PO (00:53)
[2023-12-17 02:00] VITALS: BP 142/88; PULSE 88; RESP 18; TEMP 98.4; O2SAT 97
[2023-12-17] MEDS: AZITHROMYCIN 250 MG TAB PO ONE (02:45)
== END 2023-12-17 03:10 | disposition home or self-care (01) ==
LOC: EDBD 20:10 → ER 20:10
DX: J18.9 Pneumonia, unspecified organism (principal); R10.12 Left upper quadrant pain; R11.2 Nausea with vomiting, unspecified; I13.0 Hypertensive heart and chronic kidney disease with heart failure and stage 1 through stage 4 chronic kidney disease, or unspecified chronic kidney disease; E11.22 Type 2 diabetes mellitus with diabetic chronic kidney disease; N18.9 Chronic kidney disease, unspecified; I50.9 Heart failure, unspecified; I48.91 Unspecified atrial fibrillation; I25.10 Atherosclerotic heart disease of native coronary artery without angina pectoris; I25.2 Old myocardial infarction; E78.5 Hyperlipidemia, unspecified; J44.9 Chronic obstructive pulmonary disease, unspecified; Z79.2 Long term (current) use of antibiotics; Z79.899 Other long term (current) drug therapy; Z88.8 Allergy status to other drugs, medicaments and biological substances
CPT/HCPCS: 36415; 74176; 80053; 83605; 83690; 84484; 85025; 93005

== ENCOUNTER 2024-01-11 19:23 | Emergency (ER) | payer OTHER, MEDICAID ==
[~2024-01-11] VITALS: Ht 165.1 cm; Wt 75.0 kg
[~2024-01-11 19:23] MED LIST changes: -ALBU108A5 IN; +AMIO200T33 PO; +APIX5TAB PO; -CHOL100039 PO; +CIPR-173 PO; -CLON0.1T PO; +DICY10CA PO; -LEVO500T31 PO; -METO-158 PO; -POTATAB17 PO; +ZOFR4T PO
[2024-01-11 20:54] LABS: Basophils # (auto) 0 10 ^3/uL (0-0.2); Eosinophils # (auto) 0.2 10 ^3/uL (0-0.8); Eosinophils % (auto) 1.3 % (0.0-7.0)
[2024-01-11 20:56] LABS: Basophils % (auto) 0.3 % (0.0-2.0); Lymphocytes # (auto) 0.7 10 ^3/uL (0.4-5.4); Lymphocytes % (auto) 5.7 % (10.0-50.0); Mean Corpuscular Hemoglobin 26.2 pg (28.0-32.0); Mean Corpuscular Hgb Conc. 31.5 g/dL (32.0-36.0); Mean Corpuscular Volume 83.4 fL (80.0-100.0); Monocytes # (auto) 0.9 10 ^3/uL (0-1.3); Monocytes % (auto) 7.4 % (0.0-12.0); Neutrophils # (auto) 10.9 10 ^3/uL (1.6-8.6); Neutrophils % (auto) 85.3 % (37.0-80.0); White Blood Cell 12.8 10^3/uL (4.4-10.8)
[2024-01-11 21:09] LABS: Alanine Aminotransferase 41 U/L (7-40); Albumin 3.8 g/dL (3.2-4.8); Alkaline Phosphatase 111 U/L (46-116); Anion Gap 7 (5-15); Aspartate Aminotransferase 54 U/L (13-40); BUN/Creatinine Ratio 13.8 (10.0-20.0); Bilirubin, Total 0.9 mg/dL (0.2-1.0); Blood Urea Nitrogen 31 mg/dL (9-23); Calcium 8.8 mg/dL (8.5-10.1); Carbon Dioxide 25 mmol/L (20-30); Chloride 110 mmol/L (98-107); Glucose 58 mg/dL (74-106); INR 1.31 (0.9-1.15); Prothrombin Time 13.5 sec (9.3-11.8); Sodium 142 mmol/L (136-145)
[2024-01-11 21:10] LABS: Total Protein 5.7 g/dL (5.7-8.2)
[2024-01-11 21:11] LABS: Red Cell Distribution Width 20.6 % (11.8-14.3)
[2024-01-11] MEDS ORDERED: FUROSEMIDE 20 MG/2 ML VIAL IV ONE (22:45)
[2024-01-11 23:00] VITALS: O2SAT 95
[2024-01-12] MEDS: FUROSEMIDE 40 MG/4 ML VIAL IV ONE (00:18)
[2024-01-12 00:19] LABS: Urine WBC None Seen /hpf (0 - 5)
[2024-01-12 00:25] LABS: Urine Bacteria NONE SEEN /hpf (None Seen); Urine Blood Negative /uL (Negative); Urine Clarity Clear (Clear); Urine Color Colorless (Yellow); Urine Mucus FEW (None Seen); Urine Protein, UAD TRACE (Negative); Urine Urobilinogen Normal (Negative); Urine pH 5.5 (5.0-8.0)
[2024-01-12] MEDS: levoFLOXacin 500MG 100 ML IV ONE (01:23)
[2024-01-12] MEDS ORDERED: FUROSEMIDE 40 MG/4 ML VIAL IV ONE (05:00)
[2024-01-12] MEDS: FUROSEMIDE 20 MG/2 ML VIAL IV ONE (05:56)
[2024-01-12 06:10] LABS: Basophils # (auto) 0 10 ^3/uL (0-0.2); Basophils % (auto) 0.4 % (0.0-2.0); Eosinophils # (auto) 0.1 10 ^3/uL (0-0.8); Lymphocytes # (auto) 0.8 10 ^3/uL (0.4-5.4); Lymphocytes % (auto) 7.3 % (10.0-50.0); Mean Corpuscular Volume 82.3 fL (80.0-100.0)
[2024-01-12 06:11] LABS: Hematocrit 32.4 % (36.0-46.0); Hemoglobin 10.3 g/dL (12.2-16.2); Mean Corpuscular Hemoglobin 26.1 pg (28.0-32.0); Mean Corpuscular Hgb Conc. 31.7 g/dL (32.0-36.0); Monocytes # (auto) 0.9 10 ^3/uL (0-1.3); Neutrophils % (auto) 83.3 % (37.0-80.0); Red Blood Cells 3.94 10^6/uL (4.0-5.20); White Blood Cell 10.8 10^3/uL (4.4-10.8)
[2024-01-12 06:13] LABS: Red Cell Distribution Width 20.6 % (11.8-14.3)
[2024-01-12 06:17] LABS: Chloride 110 mmol/L (98-107); Potassium 3.9 mmol/L (3.5-5.1); Sodium 142 mmol/L (136-145)
[2024-01-12 06:18] LABS: Anion Gap 7 (5-15); Calcium 8.4 mg/dL (8.5-10.1); Carbon Dioxide 25 mmol/L (20-30)
[2024-01-12 06:23] LABS: Blood Urea Nitrogen 24 mg/dL (9-23)
[2024-01-12 06:27] LABS: Glucose 39 mg/dL (74-106)
[2024-01-12] MEDS: DEXTROSE 50% SYRINGE 50 ML IV ONE (06:31)
[2024-01-12] MEDS: DEXTROSE (50%) 50ML SYRG IV ONE (06:32)
[2024-01-12] MEDS ORDERED: POTA10TA51 PO (06:44)
[2024-01-12] MEDS ORDERED: SITA50TA PO (06:44)
[2024-01-12] MEDS ORDERED: SITA25TA3 PO (07:38)
[2024-01-12] MEDS ORDERED: LIDOCAINE VISCOUS 2% 15ML UD ONE (08:37)
[2024-01-12] MEDS ORDERED: SODIUM CHLORIDE LOCK 10 ML ONE (08:37)
[2024-01-12] MEDS ORDERED: MIDAZOLAM HCL 5 MG/ML-1ML VIAL ONE (08:38)
[2024-01-12] MEDS ORDERED: fentaNYL CITRATE 100 MCG/2 ML VL ONE (08:38)
[2024-01-12] MEDS ORDERED: diphenhdrAMINE HCL 50 MG/1 ML VL ONE (08:38)
[2024-01-12 10:00] VITALS: TEMP 98.2
[2024-01-12 14:45] VITALS: BP 102/60; PULSE 95; RESP 16; O2SAT 95
== END 2024-01-12 07:39 ==
LOC: ER 19:23 → EDBD 19:23 → ER 01-12 07:39
DX: E11.22 Type 2 diabetes mellitus with diabetic chronic kidney disease (principal); I13.0 Hypertensive heart and chronic kidney disease with heart failure and stage 1 through stage 4 chronic kidney disease, or unspecified chronic kidney disease; N18.9 Chronic kidney disease, unspecified; I50.9 Heart failure, unspecified; R79.1 Abnormal coagulation profile; J44.9 Chronic obstructive pulmonary disease, unspecified; E78.5 Hyperlipidemia, unspecified
CPT/HCPCS: 36415; 36600; 71045; 80048; 80053; 81001; 82805; 82962; 83605; 83880; 84484; 85025; 85379; 85610; 85730; 87040; 93005; 96365; 96375; 96376; 99285; J1940; J1956; J7042; J2250